=== PATIENT | female | born 1980 | race Caucasian/White ===

== ENCOUNTER 2017-06-25 01:12 | Emergency (ER) | payer OTHER ==
[~2017-06-25] VITALS: Ht 167.6 cm; Wt 106.6 kg
[~2017-06-25 01:12] MED LIST: PERCOCET 5-3251 EACH PO
[2017-06-25] MEDS ORDERED: SIMVASTATIN20 MG PO (01:31)
[2017-06-25] MEDS ORDERED: CRUTCH1 EACH MISC (01:54)
[2017-06-25] MEDS ORDERED: NORCO 5-325 TA1 EACH PO (01:54)
[2017-08-07] MEDS ORDERED: VITAMIN D5000 UNIT PO (16:17)
== END 2017-06-25 02:25 | disposition home or self-care (01) ==
LOC: ED 01:12
DX: S83.91XA Sprain of unspecified site of right knee, initial encounter (principal); F17.200 Nicotine dependence, unspecified, uncomplicated; Z88.0 Allergy status to penicillin; Z88.1 Allergy status to other antibiotic agents; Z88.2 Allergy status to sulfonamides; Z79.899 Other long term (current) drug therapy; W51.XXXA Accidental striking against or bumped into by another person, initial encounter
CPT/HCPCS: 73560; 99283

== ENCOUNTER 2017-08-10 05:40 | Day surgery (SDC) | payer OTHER ==
[~2017-08-10] VITALS: Ht 167.6 cm; Wt 108.9 kg
[~2017-08-10 05:40] MED LIST changes: +CRUTCH1 EACH MISC; +NORCO 5-325 TA1 EACH PO; +SIMVASTATIN20 MG PO; +VITAMIN D5000 UNIT PO
[2017-08-10] MEDS ORDERED: NORCO 10-325 T1 EACH PO (10:37)
--- NOTE | 2017-08-15 07:19 | OR ---
[facility] [address] [place], [place] [address] Signed DATE OF OPERATION: 08/10/2017 SURGEON: Emil Olivera MD PREOPERATIVE DIAGNOSIS: ACL tear, right knee. POSTOPERATIVE DIAGNOSIS: ACL tear, right knee. PROCEDURE: ACL reconstruction right knee with GraftLink. ANESTHESIA: General. SPECIMENS: None. COMPLICATIONS: None. TOURNIQUET TIME: About 85 minutes. WHAT WAS DONE: The patient was taken to the operating room. After anesthesia was induced and the airway secured, the patient was positioned, prepped, and draped in the routine sterile fashion. The GraftLink was placed in normal saline and allowed to . The leg was then exsanguinated with an Esmarch bandage. Pneumatic tourniquet along the upper thigh was inflated to 300 mmHg of pressure. The arthroscope was inserted through the standard anterolateral portal and the probe was inserted anteromedially and the outflow cannula supermedially. Diagnostic arthroscopy revealed an unremarkable medial compartment and lateral compartment. The intercondylar notch had a complete absence of the ACL. There were some stumps left of the ACL on both the femoral and the tibial side. We withdrew the probe, inserted the motorized shaver, and debrided the stumps of the ACL. We then used a VAPR electrosurgical device to remove the remaining soft tissue off the ACL footprint on the tibia as well as off the lateral wall and apex of the femoral notch. After we removed all the soft tissue, 4 mm bur was introduced and used to do a generous notchplasty. We then passed a 10 mm curette and used it to finish the notchplasty giving Electronically Signed By: EMIL OLIVERA MD 08/15/17 0719 PATIENT NAME: SRINI PALMA OPERATIVE REPORT DATE OF : 82 PHYSICIAN: EMIL OLIVERA MD REPORT #: [id number] REPORT IS CONFIDENTIAL AND NOT TO BE RELEASED WITHOUT AUTHORIZATION [facility] [address] [place], [place] [address] Signed us a smooth lateral wall and apex of the notch. The knee was copiously irrigated and drained. We then switched the scope to the anteromedial portal and introduced the femoral aiming guide through the anterolateral portal. Another counterincision was made superolaterally and through it the guide was advanced down the bone. A 10 mm FlipCutter was then passed through the guide and secured. We then deployed the FlipCutter and drilled a 25 mm tunnel. The FlipCutter was removed and we then deployed down to the guide track. This was grasped off the anterolateral portal, brought back and clamped to itself. We then switched the scope to the anterolateral portal, placed the tibial aiming guide on the old ACL footprint, and drilled a 10 mm guide pin through a new incision placed anteromedially over the tibia up into the tibia. We then overdrilled it with a 10 mm cannulated drill. We removed the cannulated drill and guidewire, and evacuated the soft tissue and debris from the knee. We then used a small ankle curette and a Basket forceps to clean out the aperture of the intraarticular portion of the tibial tunnel. We then reached up the tibial tunnel, grabbed the FiberStick, and delivered it distally. We then attached a standard TightRope to the femoral side of the graft and the ACL TightRope to the other side. We passed a graft through the block and indeed it sized a very snug 10 mm. We then passed the TightRope portion through the FiberStick and delivered it up the tibial tunnel across the knee up the femoral tunnel and out the lateral side. Then, under direct vision with the arthroscope, we were able to pull the TightRope up through the tibial tunnel across the knee of the femoral tunnel and just out the cortex of the femoral tunnel. We were then able to flip it and under direct vision backed it back down. We were then able to tension the TightRope on the femoral side until we delivered just about 20 mm of graft into the tunnel. We then secured the ACL TightRope distally and deployed it into the tunnel. Again, by tensioning both sides of the graft, we had a snug fixation with about 20 mm of graft in either tunnel. The wounds were then gently irrigated. The knee was cycled. We did a final tensioning of the graft. We then tied multiple TightRope sutures and cut them off below the skin. The wounds were then closed only with mel because of a verbalized allergy to absorbable sutures. She was awakened and taken to the recovery room, where she arrived in a stable condition following the application of sterile dressing and a functional brace. She was taken to the recovery room, where she arrived in stable condition. Emil Olivera MD Electronically Signed By: EMIL OLIVERA MD 08/15/17 0719 PATIENT NAME: SRINI PALMA OPERATIVE REPORT DATE OF : 82 PHYSICIAN: EMIL OLIVERA MD REPORT #: [id number] REPORT IS CONFIDENTIAL AND NOT TO BE RELEASED WITHOUT AUTHORIZATION [address] [place] [address] Signed WFB/MODL /[id number] Electronically Signed By: EMIL OLIVERA MD 08/15/17 0719 PATIENT NAME: SRINI PALMA OPERATIVE REPORT DATE OF : 82 PHYSICIAN: EMIL OLIVERA MD REPORT #: [id number] REPORT IS CONFIDENTIAL AND NOT TO BE RELEASED WITHOUT AUTHORIZATION
== END 2017-08-10 12:40 | disposition home or self-care (01) ==
LOC: OPS 05:40 → DS 05:40 → OPS 06:45 → DS 06:45 → OPS 12:40
PROVIDERS: Orthopaedic Surgery
PROC: 0MRN47Z Replacement of Right Knee Bursa and Ligament with Autologous Tissue Substitute, Percutaneous Endoscopic Approach (ICD-10-PCS; principal; 2017-08-10 06:45)
DX: S83.511A Sprain of anterior cruciate ligament of right knee, initial encounter (principal); Z88.0 Allergy status to penicillin; Z88.1 Allergy status to other antibiotic agents; Z88.2 Allergy status to sulfonamides
CPT/HCPCS: 01400; 64447; 76942; C1713; C1762; C1776; J1100; J1170; J1885; J2250; J2405; J2704; J2765; J2795; J3010; J3370; J7120

== ENCOUNTER 2022-09-11 16:54 | Emergency (ER) | payer OTHER ==
[~2022-09-11] VITALS: Ht 167.6 cm; Wt 97.5 kg
[~2022-09-11 16:54] MED LIST changes: +NORCO 10-325 T1 EACH PO
--- OUTSIDE RECORDS SUMMARY | 2022-09-11 16:56 | XMS ---
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 Radu has no Care Guidelines for this patient. Ronna VISIT COUNT (12 MO.) 1 IVELISSE Vizcaino TOTAL 1 NOTE: Visits indicate total known visits. ED/C VISIT TRACKING (12 MO.) 09/11/2022 16:55 IVELISSE [place] TYPE: Emergency COMPLAINT: - LACERATION INPATIENT VISIT TRACKING (12 MO.) No inpatient visits to display in this time frame [id number]
== END 2022-09-11 20:12 | disposition home or self-care (01) ==
LOC: ED 16:54
DX: S61.213A Laceration without foreign body of left middle finger without damage to nail, initial encounter (principal); F17.200 Nicotine dependence, unspecified, uncomplicated; Z23 Encounter for immunization; Z88.0 Allergy status to penicillin; Z88.2 Allergy status to sulfonamides; Z79.899 Other long term (current) drug therapy; W26.0XXA Contact with knife, initial encounter
CPT/HCPCS: 90471; 90714; 99282-25